=== PATIENT | female | born 1950 | race Caucasian/White ===

== ENCOUNTER → 2021-01-27 08:26 | Outpatient (CLI) | payer MEDICARE, MEDICAID, SELFPAY ==
--- NOTE | 2021-01-27 08:32 | US_ITS ---
PROCEDURE: US LIVER CLINICAL INDICATION: ABN LABS Elevated liver functions COMPARISON: No exams were available for comparison FINDINGS: PANCREAS: Unremarkable. No obvious mass or abnormal fluid collection. No ductal dilatation LIVER: No focal liver lesions demonstrated. Homogeneous echogenicity. No intrahepatic biliary ductal dilatation evident. There is appropriate direction of blood flow within a non dilated portal vein RIGHT KIDNEY: There are numerous right renal cyst measuring up to 5 cm. GALLBLADDER: No gallstones, gallbladder wall thickening, pericholecystic fluid, or biliary dilatation. IMPRESSION: Multiple right renal cysts otherwise negative right upper quadrant ultrasound. Dictated by: Kelvin Nava MD 01/27/2021 15:17 Kelvin Nava MD in [place] 01/27/2021 15:17
== END ==
PROVIDERS: PCP Internal Medicine Adolescent Medicine; Visit Provider Nurse Practitioner Family
DX: R94.5 Abnormal results of liver function studies (principal)
CPT/HCPCS: 76705